=== PATIENT | female | born 1970 | race Caucasian/White ===

== ENCOUNTER 2021-04-09 13:22 | Emergency (ER) | payer OTHER ==
[~2021-04-09] VITALS: Ht 160 cm; Wt 100.7 kg
[2021-04-09] MEDS ORDERED: METHSCOPOLAMIN2.5 MG (13:40)
== END 2021-04-09 15:46 | disposition home or self-care (01) ==
LOC: ER 13:22
DX: N60.81 Other benign mammary dysplasias of right breast (principal)

== ENCOUNTER 2022-08-30 09:18 | Emergency (ER) | payer OTHER ==
[~2022-08-30] VITALS: Ht 160 cm; Wt 104.3 kg
[~2022-08-30 09:18] MED LIST: METHSCOPOLAMIN2.5 MG
== END 2022-08-30 11:37 | disposition left against medical advice (07) ==
LOC: ER 09:18
DX: J10.1 Influenza due to other identified influenza virus with other respiratory manifestations (principal); J45.909 Unspecified asthma, uncomplicated; Z91.018 Allergy to other foods